=== PATIENT | female | born 1985 | race Two or more races ===

== ENCOUNTER 2016-10-29 14:55 | Day surgery (SDC) | payer MEDICAID ==
[2016-10-29] MEDS ORDERED: KETOROLAC TROMETHAMINE 30 MG/ML 1 ML VIAL IV PRN (16:11)
[2016-10-29] MEDS ORDERED: ONDANSETRON 4 MG/2ML 2 ML VIAL IV PRN (16:11)
[2016-10-29] MEDS ORDERED: ACETAMINOPHEN 325 MG TABLET PO PRN (16:11)
[2016-10-29] MEDS ORDERED: DIPHENHYDRAMINE HCL 50 MG/1 ML VIAL IV PRN (16:11)
[2016-10-29] MEDS ORDERED: OXYCODONE/ACETAMINOPHEN 5/325 MG TABLET PO PRN (16:11)
[2016-10-29] MEDS ORDERED: LORAZEPAM 1 MG TABLET PO PRN (16:13)
[2016-10-29] MEDS ORDERED: SODIUM CHLORIDE 0.9% FLUSH 10 ML ONE (16:40)
[2016-10-29] MEDS ORDERED: IV START KIT ONE (16:40)
[2016-10-29 16:56] VITALS: BMI 28.0
[2016-10-29] MEDS ORDERED: PUMP TUBING ONE (20:22)
[2016-10-29] MEDS: LACTATED RINGERS 1,000 ML IV SCH (20:31)
[2016-10-29] MEDS ORDERED: MISOPROSTOL 200 MCG TABLET VG ONE (21:00)
--- NOTE | 2016-10-29 23:59 | HP ---
NAT PEACOCK [id number] DATE OF ADMISSION: 10/29/2016 PREOPERATIVE DIAGNOSIS: demise at 14 weeks. PROCEDURE: DILATION AND CURETTAGE. HISTORY OF PRESENT ILLNESS: The patient is a 31-year-old G-5, P-3, 0-1-3, with an estimated delivery date of 04/05/2017. The patient has been followed by Dr. Jeri Astudillo for this and had come the day prior to admission for her routine appointment at the clinic. At that time, no heart tones were noted. An ultrasound was done in the office, which did not show heart activity. A repeat ultrasound was then done at [facility], and this subsequently showed intrauterine demise, with gestation dating to 14 weeks plus five days, however, with no cardiac activity. The patient was supposed to be 17 weeks plus two days at that point. The patient is subsequently admitted for pretreatment with misoprostol prior to dilation and curettage. 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 PAST MEDICAL HISTORY: Negative. PAST SURGICAL HISTORY: Negative. ALLERGIES: No known drug allergies. PHYSICAL EXAMINATION: GENERAL: The patient is alert and appropriate, in no apparent distress. HEART: Regular rate and rhythm. LUNGS: Clear to auscultation bilaterally. ABDOMEN: Nontender and nondistended. PELVIC: Exam is deferred at this time. EXTREMITIES: Exam is normal. ASSESSMENT/PLAN: This is a 31-year-old G-5, P-3, 0-1-3 at 17 weeks of gestation, however, with an apparent 14 week intrauterine demise. The patient was counseled with regards to the miscarriage upon admission via pharmacy specialist. The patient understands that her gestation has no cardiac activity and was confirmed with the ultrasound. The patient had desired definitive treatment upon admission, and I have recommended pretreatment with misoprostol prior to her dilation and curettage in the morning due to the early second trimester gestation. The risks and benefits of dilation and curettage have been reviewed, including risk of bleeding, infection and uterine perforation. We have also discussed the use of misoprostol prior to the procedure for cervical ripening and dilation, however, the patient understands that this might also precipitate the spontaneous . Preoperative instructions and postoperative expectations have also been reviewed. The procedure will be performed by Dr. Stella Jennings, and Dr. Jennings is aware of this procedure.
[2016-10-30] MEDS: LACTATED RINGERS 1,000 ML IV SCH (06:35)
--- NOTE | 2016-10-30 08:41 | PDOC36 ---
Provider Note Subject: Pre-op note Note: H&P reviewed. Dr Astudillo discussed this pt with me yesterday. Pt responded well to misoprostol 400mcg with significant cramping, relieved some by Toradol IV. Mild vag bleeding. Consent for D&C reviewed in detail with pt and her , with Brigida as servicing manager. Risks of bleeding, infection, uterine perforation discussed. Their questions answered. Anesthesia discussed. Pt will prob choose general anesth. Post-op care also reviewed. Imp: Miscarriage at 14.5 weeks Plan: Cervical ripening overnight EUA, cervical dilation extraction of and curettage this morning.
[2016-10-30] MEDS ORDERED: FENTANYL 100 MCG/2 ML VIAL ONE (09:14)
[2016-10-30] MEDS ORDERED: MEPERIDINE 25 MG/ML SYRINGE ONE ×2 (09:36→09:37)
[2016-10-30] MEDS ORDERED: OXYTOCIN 10 UNITS/ML VIAL ONE (09:36)
[2016-10-30] MEDS ORDERED: METOCLOPRAMIDE HCL 5 MG/ML 2ML VIAL ONE (09:36)
[2016-10-30] MEDS ORDERED: FAMOTIDINE 10 MG/ML 2ML VIAL ONE (09:36)
[2016-10-30] MEDS ORDERED: ONDANSETRON 4 MG/2ML 2 ML VIAL ONE (09:36)
[2016-10-30] MEDS ORDERED: PROPOFOL 20 ML IV ONE (09:36)
[2016-10-30] MEDS ORDERED: METHYLERGONOVINE MALEATE 0.2 MG/ML 1ML AMP ONE (09:57)
[2016-10-30] MEDS ORDERED: MORPHINE SULFATE 4 MG/ML SYRINGE IV PRN (09:59)
[2016-10-30] MEDS ORDERED: HYDRALAZINE HCL 20 MG/1 ML VIAL IV PRN (09:59)
[2016-10-30] MEDS ORDERED: NALOXONE HCL 0.4 MG/ML VIAL IV PRN (09:59)
[2016-10-30] MEDS ORDERED: MEPERIDINE 25 MG/ML SYRINGE IV PRN (09:59)
[2016-10-30] MEDS ORDERED: ATROPINE SULFATE 0.4 MG/1 ML VIAL IV PRN (09:59)
[2016-10-30] MEDS ORDERED: PROMETHAZINE HCL 25 MG/ML VIAL IM PRN (09:59)
[2016-10-30] MEDS ORDERED: ONDANSETRON 4 MG/2ML 2 ML VIAL IV PRN ×2 (09:59→10:46)
[2016-10-30] MEDS ORDERED: LACTATED RINGERS 1,000 ML IV SCH ×2 (10:00→10:46)
--- NOTE | 2016-10-30 10:08 | PCMBPN ---
Brief Post Op Note: Date of Procedure: 10/30/16 Start Time: 923 Preoperative Diagnosis: 1. missed at 14.5 weeks Postoperative Diagnosis: 1. Same Procedure: Cervical dilation and extraction of Surgeon: Stella Jennings Assist:Sidney Anesthesia: Gris Vasquez CRNA Findings: cervix dilated 1cm, soft and stretchy Uterus deep and retroverted, 15wk size Macerated, ribeiro fetus approx 15 wk size Brown amnionic fluid, normal placenta Condition: Good Complications: none IV Fluids: mLs of LR Urine Output: mLs Estimated Blood Loss: 200 mLs Tourniquet Time: N/A Specimens: POC Implants: N/A Drains: N/A
[2016-10-30] MEDS ORDERED: LACTATED RINGERS 1,000 ML ONE (10:33)
[2016-10-30] MEDS ORDERED: OXYCODONE/ACETAMINOPHEN 5/325 MG TABLET PO PRN (10:46)
[2016-10-30] MEDS ORDERED: DIPHENHYDRAMINE HCL 25 MG CAPSULE PO PRN (10:46)
[2016-10-30] MEDS ORDERED: IBUPROFEN 800 MG TABLET PO PRN (10:46)
[2016-10-30] MEDS ORDERED: METHYLERGONOVINE MALEATE 0.2 MG TABLET PO SCH (13:00)
--- NOTE | 2016-10-30 14:05 | PDOC5 ---
Hospital Course: ADMIT DATE: DISCHARGE DATE: 10/30/16 ADMISSION DIAGNOSES: Missed ab at 15 wks PROCEDURES: Cervical ripening, dilation and extraction HISTORY OF PRESENT ILLNESS: 31 year old presenting with a demise at 14w5d by US. HOSPITAL COURSE: The patient had one dose of misoprostol 400mcg last night. She had hard contractions during the night. At 9am ahe was taken to the OR. Under anesthesia, a D&E was done without difficulty: macerated 15wkfetus, ? gender, ?uncertain etiology of demise, no infection. Pt has done well post-op. She was given instructions for discharge. F/up with Dr Astudillo in 2 weeks. Grief discussed. By day of discharge the patient is ambulating, eating, voiding, and passing flatus without difficulty. Pain is controlled. - Objective General: Afebrile Lungs: Clear to Auscultation Bilaterally Cardiovascular: Regular Rate and Rhythm Abdomen: Soft, Non-Distended Skin: Normal Color Psych/Mental Status: Normal Affect (Normal sadness and grief.) - Discharge Diagnosis (1) Missed with demise before 20 completed weeks of gestation Status: Acute Assessment/Plan: Pt responded well to misoprostol. D&E without difficulty. - Discharge Plan Condition: Good Disposition: Home Prescriptions: Ibuprofen [IBUPROFEN 800 MG TABLET (SHF)] 800 mg PO Q6H PRN #60 tablet PRN Reason: Pain Oxycodone HCl/Acetaminophen [PERCOCET 5/325 MG TABLET (SHF)] 1 - 2 tab PO Q4H PRN #20 tablet PRN Reason: Pain Follow-Up: Jeri Astudillo MD [Staff Physician] - In 2 weeks Stella Jennings MD [Staff Physician] - As needed
[2016-10-30 15:48] VITALS: BP 110/68
--- NOTE | 2016-10-31 13:49 | OP ---
NAT PEACOCK [id number] DATE OF : 1985 DATE OF SURGERY: 10/30/2016 PREPROCEDURE DIAGNOSIS: Missed at 14-1/2 weeks. POSTPROCEDURE DIAGNOSIS: Missed at 14-1/2 weeks. PROCEDURE PERFORMED: Cervical dilation extraction of . SURGEONS: Stella Jennings MD [employer]/MISSILE SYSTEMS OFFICER: Sidney. HR INTERN: Gris Vasquez CRNA ESTIMATED BLOOD LOSS: 200 mL FINDINGS: The cervix was already dilated about 1 cm and was soft and stretchy. The uterus was deep in the pelvis and retroverted. There was brown amniotic fluid with no suggestion of infection. The fetus was macerated perhaps 15 weeks in size. Placental tissue appeared normal. DESCRIPTION OF PROCEDURE: On the morning of 10/30/2016 after obtaining the patient's consent and after the usual preoperative preparations were completed on Tindie; Nat was brought to the operating room and placed on the operating room table in a supine position. The usual monitoring leads were placed. General anesthesia was then administered and the patient was intubated with a laryngeal mask airway. She was then adjusted into a dorsal lithotomy position with her legs in the candy cane stirrups. An exam under anesthesia revealed a moderate amount of bloody mucoid discharge in the vagina. The cervix was somewhat bulky. It was posterior. It was soft and already dilated approximately 1 cm. The uterus its self was midplane and 15 to 16 weeks in size. A vaginal perineal prep was done in the usual fashion. Patient was then draped for a dilatation and curettage. A time out was then performed verifying proper patient, procedure, position, personnel, and equipment. After verifying an adequate level of anesthesia, a weighted speculum was placed in the posterior vaginal fornix. The cervix was grasped with a tenaculum. The cervix was dilated gently, a little bit further to about 1-1/2 cm. This was done with minimal pressure. Exploration of the endometrial cavity ruptured the bag of saha and yielded a moderate amount of brownish fluid with no odor. The fetus came down first and found to be macerated, ribeiro in color with features already very difficult to recognize. It was not possible to tell whether this was a male, or female. The fetus delivered breech, and we verified that the entire fetus was obtained. The placenta was then delivered using the ring forceps and gentle probing. A sharp curettage was then performed and the endometrial cavity was again explored. The patient was given some IV Pitocin and this helped tone up the uterus and decreased the bleeding. A sharp curettage was again performed verifying that the entire cavity was empty. The tenaculum was then removed. There was some bleeding from the tenaculum and this was controlled with silver nitrate sticks. The uterus was firm. Bleeding was minimal at this point. The patient was then cleaned up. She was taken out the dorsal lithotomy position. She was gently awoken from anesthesia. She was then taken to the recovery room in stable condition. MIRNA/carolee
--- NOTE | 2016-11-03 13:35 | SURGPATH ---
[facility] [address] [place] [id number] Patient Name: NAT PEACOCK MR#: [id number] : 1985 Gender: F Specimen #: [id number] Collected: 10/30/2016 Received: 11/02/2016 Reported: 11/03/2016 Submitting Phys: KILEY BLOOM Copy To Phys: KRYSTINA BURDICK [facility] Clinical History / Pre-Operative Diagnosis: DEMISE Specimen Source / Surgical Procedure Performed: PRODUCTS OF CONCEPTION Interpretation: PRODUCTS OF CONCEPTION: - IMMATURE PLACENTAL TISSUE, DECIDUAL TISSUE AND AUTOLYZED TISSUE PRESENT. Electronically Signed Out Kay Mcintosh M.D. Gross Description: The specimen is received in a formalin filled container labeled with the patient's name and "products of conception". An aggregate of ribeiro tissue admixed with hemorrhagic material is 8.0 x 7.5 x 3.5 cm. Included is spongy, membranous, placenta-like tissue. Recognizable tissue includes a 1.2 cm foot. Three bottling equipment sales representative sections are submitted in one cassette. Nerissa Rosado Microscopic Description: Sections from the specimen show immature, variably sized chorionic villi with associated membranous tissue and decidual tissue. In addition, the sections include autolyzed tissue. 1: [id number] O02.89
== END 2016-10-30 14:50 | disposition home or self-care (01) ==
LOC: SDC 14:55 → MS 15:00 → SDC 10-30 14:50
PROVIDERS: ATTEND Family Medicine
PROC: 10D17ZZ Extraction of Products of Conception, Retained, Via Natural or Artificial Opening (ICD-10-PCS; principal; 2016-10-29)
DX: O02.1 Missed abortion (principal); Z3A.14 14 weeks gestation of pregnancy
CPT/HCPCS: 59812; J2175 ×2; J3010; J2210; A9270 ×3; J2590; J2765; J1885; J2405; J7120 ×3